=== PATIENT | female | born 1950 | race Caucasian/White ===

== ENCOUNTER 2019-10-14 08:02 | Day surgery (SDC) | payer MEDICARE ==
[~2019-10-14] VITALS: Ht 162.6 cm; Wt 90.5 kg
[2019-10-14] MEDS ORDERED: LEVO88TA4 PO (08:42)
[2019-10-14] MEDS ORDERED: ASTELIN INH (08:42)
[2019-10-14] MEDS ORDERED: BENA20TA54 PO (08:42)
[2019-10-14] MEDS ORDERED: ASPI81TA45 PO (08:42)
[2019-10-14] MEDS ORDERED: SPIR25TA PO (08:42)
[2019-10-14] MEDS ORDERED: METF500T27 PO (08:42)
[2019-10-14 08:43] VITALS: BP 138/91
[2019-10-14] MEDS ORDERED: VERAPAMIL 2.5 MG/ML, 2ML ONE (08:45)
[2019-10-14] MEDS ORDERED: MIDAZOLAM 1 MG/ML, 5ML ONE (08:45)
[2019-10-14] MEDS ORDERED: FENTANYL PF 100 MCG/2ML ONE (08:45)
[2019-10-14] MEDS ORDERED: HEPARIN 1,000 UNITS/ML, 10ML ONE (08:46)
[2019-10-14] MEDS ORDERED: LIDOCAINE-MPF 1%, 5ML ONE (08:46)
[2019-10-14 08:58] LABS: BASOPHILS # (AUTO) 0.02 x10^3/uL (0-0.1); BASOPHILS % (AUTO) 0 % (0-1); EOSINOPHILS # (AUTO) 0.05 x10^3/uL (0-0.4); EOSINOPHILS % (AUTO) 1 % (1-7); LYMPHOCYTES # (AUTO) 1.22 x10^3/uL (1-3.4); LYMPHOCYTES % (AUTO) 27 % (22-44); MD NO; MEAN CORPUSCULAR HGB CONC 32.8 g/dL (32.4-35.8); MEAN CORPUSCULAR VOLUME 97.6 fL (80-100); MONOCYTES % (AUTO) 7 % (2-9); NEUTROPHILS # (AUTO) 3.02 x10^3/uL (1.8-6.8); NEUTROPHILS % (AUTO) 66 % (42-75); PLATELET COUNT 208 x10^3/uL (130-400); RED BLOOD COUNT 5.77 x10^6/uL (3.82-5.3); RED CELL DISTRIBUTION WIDTH 13.2 % (9.6-15.2)
[2019-10-14 09:05] LABS: INTERNATIONAL NORMALIZED RATIO 1.14 (0.93-1.1); PROTHROMBIN TIME 11.8 Seconds (9.6-11.5)
[2019-10-14 09:08] LABS: ANION GAP 7 mmol/L (5-15); CALCIUM 9.2 mg/dL (8.5-10.1); CHLORIDE 106 mmol/L (98-107); CREATININE 0.87 mg/dL (0.55-1.02)
[2019-10-14] MEDS ORDERED: DIPHENHYDRAMINE 50 MG/ML, 1ML ONE (09:20)
[2019-10-14] MEDS ORDERED: ADENOSINE IV ONE (10:00)
[2019-10-14] MEDS ORDERED: ADENOSINE IV PRN (10:00)
[2019-10-14] MEDS ORDERED: SODIUM CHLORIDE 0.9% IV ONE (10:00)
[2019-10-14] MEDS ORDERED: SODIUM CHLORIDE 0.9% IV PRN (10:00)
[2019-10-14] MEDS ORDERED: SODIUM CHLORIDE 0.9% 1,000 ML IV SCH (11:04)
== END 2019-10-14 12:50 | disposition home or self-care (01) ==
LOC: CACL 08:02
PROVIDERS: ATTEND Internal Medicine Cardiovascular Disease
DX: I27.20 Pulmonary hypertension, unspecified (principal); I10 Essential (primary) hypertension; E11.9 Type 2 diabetes mellitus without complications; G47.30 Sleep apnea, unspecified; E66.3 Overweight; F17.211 Nicotine dependence, cigarettes, in remission; Z68.35 Body mass index [BMI] 35.0-35.9, adult; Z79.01 Long term (current) use of anticoagulants; Z79.82 Long term (current) use of aspirin; Z79.84 Long term (current) use of oral hypoglycemic drugs; Z79.890 Hormone replacement therapy; Z79.899 Other long term (current) drug therapy; Z88.0 Allergy status to penicillin; Z88.2 Allergy status to sulfonamides; Z88.8 Allergy status to other drugs, medicaments and biological substances; Z91.018 Allergy to other foods
CPT/HCPCS: 36415; 80048; 83880; 85025; 85610; 93460; 93463; 99156; 99157; C1769; C1894; J0153; J1200; J1644; J2250; J3010; Q9967

== ENCOUNTER → 2020-06-14 | Outpatient (CLI) | payer MEDICARE ==
[~2020-06-14] MED LIST: ASPI81TA45 PO; ASTELIN INH; BENA20TA54 PO; LEVO88TA4 PO; METF500T27 PO; SPIR25TA PO
== END | disposition home or self-care (01) ==
LOC: CFH 12:57
PROVIDERS: ATTEND Internal Medicine Cardiovascular Disease
DX: I08.8 Other rheumatic multiple valve diseases (principal); I10 Essential (primary) hypertension; R06.02 Shortness of breath
CPT/HCPCS: 93306